=== PATIENT | female | born 1950 | race Hispanic/Latino ===

== ENCOUNTER 2017-09-17 14:42 | Outpatient (CLI) | payer MEDICARE, MEDICAID | END 2017-09-17 14:43 | disposition home or self-care (01) | LOC: BICMAMMO 14:42 | PROVIDERS: ATTEND Family Medicine | DX: Z12.31 Encounter for screening mammogram for malignant neoplasm of breast (principal); Z80.3 Family history of malignant neoplasm of breast | CPT/HCPCS: 77063; 77067; 77080 ==

== ENCOUNTER 2017-09-24 12:58 | Outpatient (CLI) | payer MEDICARE, MEDICAID | END 2017-09-24 12:59 | disposition home or self-care (01) | LOC: BICMAMMO 12:58 | PROVIDERS: ATTEND Family Medicine | DX: R92.1 Mammographic calcification found on diagnostic imaging of breast (principal) | CPT/HCPCS: 77065; G0279 ==

== ENCOUNTER → 2017-10-07 | Day surgery (SDC) | payer MEDICARE, MEDICAID ==
--- NOTE | 2017-10-07 11:00 | MMO ---
STEREOTACTIC BREAST BIOPSY: Date: 10/07/17 HISTORY: Right breast calcifications. COMPARISON: Outside facility mammograms. TECHNIQUE/FINDINGS: Patient was brought to the mammography suite. All questions were answered. The right breast was prepped and draped in normal sterile fashion. Using mammographic guidance, the r ight breast calcifications were accessed. This was done using a 10 gauge needle. A total of 6 cores w ere obtained. Clip was placed. There were calcifications within the sample. IMPRESSION: Technically successful stereotactic right breast calcifications biopsy. POS: MELISA
--- NOTE | 2017-10-07 11:46 | MMO ---
MAMMOGRAM SURGICAL SPECIMEN: Date: 10/07/17 HISTORY: Stereotactic biopsy. COMPARISON: Outside facility radiographs. FINDINGS: There are calcifications in the specimen. Adequate specimen. IMPRESSION: Adequate specimen. POS: MELISA
--- NOTE | 2017-10-07 11:50 | MMO ---
POST CLIP MAMMOGRAM: Date: 10/07/17 HISTORY: Post biopsy mammogram. COMPARISON: Outside facility mammograms. FINDINGS: Interval removal of right breast calcifications. Satisfactory position of biopsy clip. IMPRESSION: Satisfactory position of biopsy clip with removal of the breast calcifications. POS: MELISA
== END ==
LOC: MAMMO 06:46
PROVIDERS: ATTEND Family Medicine
PROC: 0HBT3ZX Excision of Right Breast, Percutaneous Approach, Diagnostic (ICD-10-PCS; principal; 2017-10-07)
DX: N60.21 Fibroadenosis of right breast (principal); D24.1 Benign neoplasm of right breast
CPT/HCPCS: 19081; 76098; 88305

== ENCOUNTER 2018-12-27 08:53 | Outpatient (CLI) | payer MEDICARE, MEDICAID ==
--- NOTE | 2018-12-27 11:20 | MMO ---
Bilateral MAMMO Bilat Screen [facility]. CLINICAL HISTORY: Patient is 68 years old and is seen for screening. The patient has the following family history of breast cancer: sister, malignant (generic) and niece, malignant (generic). The patient has no personal history of cancer. The patient has a history of right Stereotatic Biopsy in 2018 - benign. VIEWS: The views performed were: bilateral craniocaudal with tomosynthesis and bilateral mediolateral oblique with tomosynthesis. FILMS COMPARED: The present examination has been compared to prior imaging studies performed at [facility] on 03/28/2015, 03/30/2016, 09/17/2017 and 09/24/2017. This study has been interpreted with the assistance of computer-aided detection. MAMMOGRAM FINDINGS: There are scattered fibroglandular densities. Benign calcifications are noted bilaterally. Right biopsy clip. There are no suspicious masses, suspicious calcifications, or new areas of architectural distortion. IMPRESSION: THERE IS NO MAMMOGRAPHIC EVIDENCE OF MALIGNANCY. A ROUTINE FOLLOW-UP MAMMOGRAM IN 1 YEAR IS RECOMMENDED. THE RESULTS OF THIS EXAM WERE SENT TO THE PATIENT. ACR BI-RADS Category 2 - Benign finding MAMMOGRAPHY NOTE: 1. A negative mammogram report should not delay a biopsy if a dominant of clinically suspicious mass is present. 2. Approximately 10% to 15% of breast cancers are not detected by mammography. 3. Adenosis and dense breasts may obscure an underlying neoplasm. Reported by: JESSICA ALEX MD Electonically Signed: [id number]
== END 2018-12-27 08:54 | disposition home or self-care (01) ==
LOC: BICMAMMO 08:53
PROVIDERS: ATTEND Family Medicine
DX: Z12.31 Encounter for screening mammogram for malignant neoplasm of breast (principal); Z80.3 Family history of malignant neoplasm of breast
CPT/HCPCS: 77063; 77067

== ENCOUNTER 2020-01-17 10:03 | Outpatient (CLI) | payer MEDICARE, MEDICAID ==
--- NOTE | 2020-01-17 14:11 | MMO ---
Bilateral MAMMO Bilat Screen [facility]. CLINICAL HISTORY: Patient is 69 years old and is seen for screening. The patient has the following family history of breast cancer: sister, malignant (generic) and niece, malignant (generic). The patient has no personal history of cancer. The patient has a history of right Stereotatic Biopsy in 2018 - benign. VIEWS: The views performed were: bilateral craniocaudal with tomosynthesis and bilateral mediolateral oblique with tomosynthesis. FILMS COMPARED: The present examination has been compared to prior imaging studies performed at [facility] on 03/30/2016, 09/17/2017, 09/24/2017 and 12/27/2018. This study has been interpreted with the assistance of computer-aided detection. MAMMOGRAM FINDINGS: There are scattered fibroglandular densities. Benign calcifications are noted bilaterally. Right biopsy clip. There are no suspicious masses, suspicious calcifications, or new areas of architectural distortion. IMPRESSION: THERE IS NO MAMMOGRAPHIC EVIDENCE OF MALIGNANCY. A ROUTINE FOLLOW-UP MAMMOGRAM IN 1 YEAR IS RECOMMENDED. THE RESULTS OF THIS EXAM WERE SENT TO THE PATIENT. ACR BI-RADS Category 2 - Benign finding MAMMOGRAPHY NOTE: 1. A negative mammogram report should not delay a biopsy if a dominant of clinically suspicious mass is present. 2. Approximately 10% to 15% of breast cancers are not detected by mammography. 3. Adenosis and dense breasts may obscure an underlying neoplasm. Reported by: JESSICA ALEX MD Electonically Signed: [id number]
== END 2020-01-17 10:04 | disposition home or self-care (01) ==
LOC: BICMAMMO 10:03
PROVIDERS: ATTEND Family Medicine
DX: Z12.31 Encounter for screening mammogram for malignant neoplasm of breast (principal); Z80.3 Family history of malignant neoplasm of breast; Z91.89 Other specified personal risk factors, not elsewhere classified
CPT/HCPCS: 77063; 77067

== ENCOUNTER 2021-03-17 10:33 | Outpatient (CLI) | payer MEDICARE, MEDICAID | END 2021-03-17 10:34 | disposition home or self-care (01) | LOC: BICMAMMO 10:33 | PROVIDERS: ATTEND Family Medicine | DX: Z12.31 Encounter for screening mammogram for malignant neoplasm of breast (principal); Z13.820 Encounter for screening for osteoporosis; Z78.0 Asymptomatic menopausal state; Z80.3 Family history of malignant neoplasm of breast; Z91.89 Other specified personal risk factors, not elsewhere classified | CPT/HCPCS: 77063; 77067; 77080 ==

== ENCOUNTER 2022-03-25 14:22 | Outpatient (CLI) | payer OTHER, MEDICAID | END 2022-03-25 14:23 | disposition home or self-care (01) | LOC: BICMAMMO 14:22 | PROVIDERS: ATTEND Family Medicine | DX: Z12.13 Encounter for screening for malignant neoplasm of small intestine (principal); Z80.3 Family history of malignant neoplasm of breast; Z91.89 Other specified personal risk factors, not elsewhere classified | CPT/HCPCS: 77063; 77067 ==

== ENCOUNTER 2024-09-27 11:58 | Outpatient (CLI) | payer OTHER, MEDICAID | END 2024-09-27 11:59 | disposition home or self-care (01) | LOC: SCSRAD 11:58 | PROVIDERS: ATTEND Student in an Organized Health Care Education/Training Program | DX: J40 Bronchitis, not specified as acute or chronic (principal); R05.1 Acute cough; J18.9 Pneumonia, unspecified organism | CPT/HCPCS: 71046 ==

== ENCOUNTER 2024-10-31 08:32 | Outpatient (CLI) | payer OTHER, MEDICAID | END 2024-10-31 08:33 | disposition home or self-care (01) | LOC: BICMAMMO 08:32 | PROVIDERS: ATTEND Student in an Organized Health Care Education/Training Program | DX: Z12.31 Encounter for screening mammogram for malignant neoplasm of breast (principal); Z78.0 Asymptomatic menopausal state; M85.851 Other specified disorders of bone density and structure, right thigh; M85.852 Other specified disorders of bone density and structure, left thigh; Z80.3 Family history of malignant neoplasm of breast; Z91.89 Other specified personal risk factors, not elsewhere classified | CPT/HCPCS: 77063; 77067; 77080 ==